=== PATIENT | male | born 1965 | race African-American/Black ===

== ENCOUNTER 2023-02-23 17:49 | Inpatient (IN) | payer MEDICARE ==
[~2023-02-23] VITALS: Ht 167.6 cm; Wt 87.8 kg
[~2023-02-23 17:49] MED LIST: DOXYCYCLINE 10100 MG PO
[2023-02-23] MEDS ORDERED: Albuterol/Ipratropium 3 MG-0.5 MG/3 ML Neb Soln IH ONE ×2 (18:00→18:30)
[2023-02-23] MEDS ORDERED: methylPREDNISolone Sod Succ 125 MG/2 ML VIAL IV ONE (18:00)
[2023-02-23] MEDS ORDERED: NS 1,000 ML IV ONE (18:15)
[2023-02-23 18:31] LABS: HEMATOCRIT 44.7 % (42.0-52.0); HEMOGLOBIN 14.9 g/dl (13.5-18.0); MEAN CELL VOLUME 82 fl (80.0-100.0); MEAN CORPUSCULAR HEMOGLOBIN 27 pg (27-31); MEAN CORPUSCULAR HGB CONC 33 g/dl (33.0-37.0); MEAN PLATELET VOLUME 9.6 fl (7.4-10.4); PLATELET COUNT 205 K/mm3 (130-400); RED BLOOD COUNT 5.47 M/mm3 (4.20-5.60); REDCELL DISTRIBUTION WIDTH-CV 13.3 % (11.5-14.5)
[2023-02-23 18:53] LABS: ALANINE AMINOTRANSFERASE 11 U/L (0-55); ALBUMIN 3.6 gm/dL (3.5-5.0); ALKALINE PHOSPHATASE 77 U/L (40-150); ANION GAP 10 mmol/L (7-16); AST,SGOT 21 U/L (5-34); BILIRUBIN,TOTAL 0.3 mg/dL (0.2-1.2); BLOOD UREA NITROGEN 10 mg/dL (8-26); C-REACTIVE PROTEIN 9.51 mg/dL (0.00-0.50); CALCIUM 8.9 mg/dL (8.4-10.2); CARBON DIOXIDE 19 mmol/L (22-29); CHLORIDE 98 mmol/L (98-107); CREATININE, serum 0.85 mg/dL (0.72-1.25); GLUCOSE 102 mg/dL (70-99); POTASSIUM 3.6 mmol/L (3.5-4.5); SODIUM 127 mmol/L (136-145); TOTAL PROTEIN 6.2 gm/dL (6.2-8.1)
[2023-02-23 18:58] LABS: TROPONIN-I < 0.010 ng/mL (0.00-0.033)
[2023-02-23 19:02] LABS: BAND 6 % (0-10); EOSINOPHIL 2 % (0-4); LYMPHOCYTE 6 % (20.0-51.0); MYELOCYTE 1 % (0-0); NEUTROPHILS 72 % (42.0-75.2); PLATELET ESTIMATE NORMAL (NORMAL)
[2023-02-23] MEDS ORDERED: Albuterol/Ipratropium 3 MG-0.5 MG/3 ML Neb Soln IH PRN ×2 (20:15→20:30)
[2023-02-23] MEDS ORDERED: cefTRIAXone 1 G in Water For Injection,Sterile 10 ML IV ONE (20:15)
--- NOTE | 2023-02-23 20:43 | NUR ---
PATIENT ARRIVED FROM ER VIA WHEELCHAIR. REPORT RECIEVED FROM [facility] NURSE PRACTITIONER AT 2128. PATIENT ASSISTED TO BED WITH STAND BY ASSIST. TELEMETRY INTACT. INT TO RIGHT FOREARM INTACT WITH ZOSYN INFUSING. PATIENT VERBALIZED UNDERSTANDING OF BED CONTROLS AND CALL LIGHT. BED IN LOW POSITION WITH WHEELS LOCKED WITH RAILS UP X3 AND CALL LIGHT WITHIN REACH. BED ALARM ON.
[2023-02-23] MEDS ORDERED: XALATAN EYE DROPS OU (21:21)
[2023-02-23] MEDS ORDERED: FOLIC ACID 11 MG/TA1 PO (21:22)
[2023-02-23] MEDS ORDERED: BUSPAR10 MG PO (21:22)
[2023-02-23] MEDS ORDERED: GLUCOPHAGE XR500 M1 PO (21:23)
[2023-02-23] MEDS ORDERED: LAMICTAL 100MG100 MG PO (21:24)
[2023-02-23] MEDS ORDERED: KLOR-CON 88 ME1 PO (21:24)
[2023-02-23] MEDS ORDERED: HALDOL 5MG T5 MG/TAB PO (21:24)
[2023-02-23] MEDS ORDERED: LEXAPRO 10MG10 MG PO (21:25)
[2023-02-23] MEDS ORDERED: NORVASC 10MG10 MG PO (21:26)
[2023-02-23] MEDS ORDERED: ZYPREXA10 MG PO (21:26)
[2023-02-23] MEDS ORDERED: PRINIVIL20 MG PO (21:27)
[2023-02-23] MEDS ORDERED: PROTONIX 40MG T40 MG PO (21:27)
[2023-02-23] MEDS ORDERED: TOPROL XL 50MG50 MG PO (21:28)
[2023-02-23 21:30] VITALS: BP_SYST 122
--- NOTE | 2023-02-23 21:30 | NUR ---
PATIENT RESTING IN BED WITH NO ACUTE DISTRESS NOTED. PATIENT ON 2 LITERS OF OXYGEN VIA NC. ZOSYN INFUSING INTO RIGHT FOREARM WITH NO COMPLICATIONS NOTED. ASSESSMENT COMPLETED AT THIS TIME. PATIENT TOLERATED WELL. PATIENT REQUESTED TURKEY SANDWICH AND DIET PEPSI. SANDWICH TRAY, CUP OF ICE, WATER PITCHER, AND DIET PEPSI GIVEN. PATIENT DENIES ANY OTHER NEEDS AT THIS TIME. PATIENT VERBALIZED UNDERSTANDING OF CALL LIGHT AND BED CONTROLS. BED IN LOW POSITION WITH WHEELS LOCKED WTIH RAILS UP X2 AND CALL LIGHT WITHIN REACH. BED ALARM ON.
[2023-02-23] MEDS ORDERED: INCRUSE EL62.5 MCG/A IH (21:31)
[2023-02-23] MEDS ORDERED: ULTRAM 50MG TAB50 MG PO (21:31)
--- NOTE | 2023-02-23 21:37 | NUR ---
[employer] CALLED TO CLARIFY METOPROLOL MEDICATION TYPE. NURSE COULD NOT STATE WHICH ONE BEWTEEN TATRATE AND SUCEINATE. KEITH GEE NOTIFIED PER HER REQUEST.
[2023-02-23] MEDS ORDERED: 00186-0372-20 IH (21:38)
[2023-02-23] MEDS ORDERED: ZYPREXA7.5 MG PO (21:39)
[2023-02-23] MEDS ORDERED: OTEZLA PO (21:39)
[2023-02-23] MEDS ORDERED: PROAIR HFA0.09 MG/AC IH (21:39)
[2023-02-23] MEDS ORDERED: PROCTOCREAM-HC2.5% RC (21:40)
[2023-02-23] MEDS ORDERED: AQUAPHOR HEALING41% TP (21:41)
[2023-02-23] MEDS ORDERED: ARTIFICIAL TEAR15 M7 OU (21:41)
[2023-02-23] MEDS ORDERED: ORAJEL MM (21:42)
[2023-02-23] MEDS ORDERED: BEANO400 UNIT PO (21:42)
[2023-02-23] MEDS ORDERED: B COMPLEX #11 TA1 PO (21:42)
[2023-02-23] MEDS ORDERED: BIOFREEZE 0.2%-1 GE1 TOP (21:43)
[2023-02-23] MEDS ORDERED: COLACE 100100 MG/CAP PO (21:43)
[2023-02-23] MEDS ORDERED: BIOTENE MOIST44.3 ML PO (21:43)
[2023-02-23] MEDS ORDERED: HALLS9.1 MG PO (21:44)
[2023-02-23] MEDS ORDERED: PEPCID AC 10MG10 MG PO (21:44)
[2023-02-23] MEDS ORDERED: EXPECTORANT DM240 ML PO (21:48)
[2023-02-23] MEDS ORDERED: ROBITUSSIN100 MG/5 M PO (21:49)
[2023-02-23] MEDS ORDERED: HYDROCORTISONE30 G3 TP (21:52)
[2023-02-23] MEDS ORDERED: ADVIL200 MG PO (21:52)
[2023-02-23] MEDS ORDERED: IMODIUM 2MG CAPS2 MG PO (21:52)
[2023-02-23] MEDS ORDERED: CLARITIN 1010 MG/TAB PO (21:53)
[2023-02-23] MEDS ORDERED: MELATONIN5 M1 PO (21:53)
[2023-02-23] MEDS ORDERED: MILK OF MA400 MG/52 PO (21:54)
[2023-02-23] MEDS ORDERED: MULTIPLE VITAMI1 CAP PO (21:55)
[2023-02-23] MEDS ORDERED: MUCINEX DM 30 M1 TE1 (21:55)
[2023-02-23] MEDS ORDERED: MAG-AL LIQUID 230 ML PO (21:55)
[2023-02-23] MEDS ORDERED: OCEAN NASAL SPR45 ML NS (21:57)
[2023-02-23] MEDS ORDERED: MIRALAX PA17 GM/Dose PO (21:57)
[2023-02-23] MEDS ORDERED: PREPH RC (21:58)
[2023-02-23] MEDS ORDERED: MYLICON 8080 MG/TAB. PO (21:58)
[2023-02-23] MEDS ORDERED: DEPO-TESTOS200 MG/M1 IM (21:59)
[2023-02-23] MEDS ORDERED: NATURE'S BLEND100 M2 PO (21:59)
[2023-02-23] MEDS ORDERED: VITAMIN D31000 I1 PO (22:00)
[2023-02-23] MEDS ORDERED: TYLENOL 325MG325 MG PO (22:00)
[2023-02-23] MEDS ORDERED: lamoTRIgine 100 MG TAB PO SCH (22:03)
[2023-02-23] MEDS ORDERED: OLANZapine 10 MG Orally-Disinteg TAB PO SCH (22:04)
[2023-02-23] MEDS ORDERED: busPIRone 5 MG TAB PO SCH (22:04)
[2023-02-23] MEDS ORDERED: Latanoprost 0.005% Ophth Soln 2.5 ML BOTTLE OP SCH (22:07)
[2023-02-23] MEDS ORDERED: guaiFENesin ER 1,200 MG **** subs to guaiFENesin 400 MG PO SCH (22:07)
[2023-02-23] MEDS ORDERED: Famotidine 20 MG TAB PO SCH (22:13)
[2023-02-23] MEDS ORDERED: Polyethylene Glycol 3350 17 GM PDS PO PRN (22:15)
[2023-02-23] MEDS ORDERED: Acetaminophen 325 MG TAB PO PRN (22:15)
[2023-02-23] MEDS ORDERED: Hydrocortisone 2.5% Cream 28.35 GM TUBE TOP PRN (22:15)
[2023-02-23] MEDS ORDERED: Menthol Cough/Sore Throat LOZENGE MM PRN (22:15)
[2023-02-23] MEDS ORDERED: traMADol 50 MG TAB PO PRN (22:15)
[2023-02-23] MEDS ORDERED: Sodium Chloride 0.65% Nasal Irrig 45 ML BOTTLE NS PRN (22:15)
[2023-02-23] MEDS ORDERED: guaiFENesin Oral Soln 200 MG/10 ML UD PO PRN (22:15)
[2023-02-23] MEDS ORDERED: guaiFENesin/Dextromethorphan Oral Soln 200-20 MG/10 ML UD PO PRN (22:15)
[2023-02-23] MEDS ORDERED: NS 1,000 ML IV SCH (22:30)
[2023-02-23] MEDS ORDERED: Melatonin 3 MG TAB PO SCH (22:30)
[2023-02-23] MEDS ORDERED: Nicotine 14 MG DAILY PATCH TD SCH (22:45)
[2023-02-23] MEDS ORDERED: Potassium Bicarbonate/Citrate 20 MEQ Effervescent TAB PO SCH (22:45)
[2023-02-23] MEDS ORDERED: *Potassium Replacement Protocol MC SCH (22:45)
[2023-02-23 23:35] VITALS: BP 131/79; PULSE 116; TEMP 99
--- NOTE | 2023-02-23 23:46 | NUR ---
PATIENT RESTING IN BED WITH NO ACUTE DISTRESS NOTED. PATIENT ON 2 LITERS OF OXYGEN VIA NC. MEDICATION ADMINISTRATION COMPLETED AT THIS TIME. PATIENT TOLERATED WELL. PATIENT C/O PAIN AND TYLENOL WAS GIVEN. SEE EMAR. PATIENT REQUESTED DIET PEPSI AND WAS GIVEN. ALL NEEDS MET. BED IN LOW POSITION WITH WHEELS LOCKED WITH RAILS UP X3 AND CALL LIGHT WITHIN REACH. BED ALARM ON.
[2023-02-24] VITALS (12 sets, daily range): BP systolic 100–132; BP diastolic 58–87; PULSE 67–102; TEMP 97.6–98.3
[2023-02-24] MEDS ORDERED: Albuterol/Ipratropium 3 MG-0.5 MG/3 ML Neb Soln IH SCH ×2 (02:00)
[2023-02-24] MEDS ORDERED: Formoterol 20 MCG,Budesonide 0.5 MG IH SCH (07:00)
[2023-02-24] MEDS ORDERED: Multivitamin TAB PO SCH (09:00)
[2023-02-24] MEDS ORDERED: Loratadine 10 MG TAB PO SCH (09:00)
[2023-02-24] MEDS ORDERED: Carboxymethylcellulose PF Ophth 0.4 ML DROPPERETTE OP SCH (09:00)
[2023-02-24] MEDS ORDERED: Thiamine 100 MG TAB PO SCH (09:00)
[2023-02-24] MEDS ORDERED: Docusate Sodium 100 MG CAP PO SCH (09:00)
[2023-02-24] MEDS ORDERED: Cholecalciferol (Vit D3) 1000 Units TAB PO SCH (09:00)
[2023-02-24] MEDS ORDERED: Folic Acid 1 MG TAB PO SCH (09:00)
[2023-02-24] MEDS ORDERED: OLANZapine 5 MG TAB PO SCH (09:00)
[2023-02-24] MEDS ORDERED: PETROLATUM TP SCH (09:00)
[2023-02-24] MEDS ORDERED: dexAMETHasone 10 MG/ML VIAL IV SCH (09:00)
[2023-02-24 12:04] LABS: BASO % 0.1 % (0.0-2.0); GRAN # 5.8 K/mm3 (1.4-6.5); GRAN % 83.6 % (42.2-75.2); HEMATOCRIT 46.9 % (42.0-52.0); HEMOGLOBIN 15.5 g/dl (13.5-18.0); LYMPH # 0.5 K/mm3 (1.2-3.4); LYMPH % 6.5 % (20.0-51.0); MEAN CELL VOLUME 82 fl (80.0-100.0); MEAN CORPUSCULAR HEMOGLOBIN 27 pg (27-31); MEAN CORPUSCULAR HGB CONC 33 g/dl (33.0-37.0); MEAN PLATELET VOLUME 9.4 fl (7.4-10.4); MONO # 0.7 K/mm3 (0.1-0.6); MONO % 9.4 % (1.7-9.3); PLATELET COUNT 206 K/mm3 (130-400); RED BLOOD COUNT 5.74 M/mm3 (4.20-5.60); REDCELL DISTRIBUTION WIDTH-CV 13.5 % (11.5-14.5)
[2023-02-24 12:17] LABS: CALCIUM 8.7 mg/dL (8.4-10.2); CREATININE, serum 0.74 mg/dL (0.72-1.25); POTASSIUM 4.2 mmol/L (3.5-4.5)
--- NOTE | 2023-02-24 13:32 | NUR ---
Initial visit; Patient thanked Direct Selling Counselor for introducing herself and offering God's blessings. Patient from [place] so when Direct Selling Counselor learned this information she told patient we are glad to have him with us here in [place]. He took notice and thanked her for coming in.
--- NOTE | 2023-02-24 15:34 | NUR ---
[facility] [employer] met with patient to discuss discharge planning. Patient's guardian, Grisel (ph#[phone]) is at bedside. Patient lives at [facility] but stated he doesn't really like it. Patient sees Dr. Lee for primary care. Grisel advised plan is for patient to return to [place] at time of discharge. Guardianship documents are on patient's chart. BRENDAN Cruz contacted [facility] and faxed clinical updates. Discharge Plan: [facility]
[2023-02-24] MEDS ORDERED: busPIRone 7.5 MG TABLET PO SCH (21:00)
[2023-02-24] MEDS ORDERED: amLODIPine 10 MG TAB PO SCH (21:00)
--- NOTE | 2023-02-24 22:34 | NUR ---
Patient assessed around 1950. Alert and oriented, and able to make needs known. Denies having pain and discomfort. Peripheral INT to right forearm, has ABX running per orders. Denies SOB at rest, but states he does with exertion. LS wheezes. RT placed patient on room air. HRR. Telemetry in place. BSAx4. No edema. Voices no questions, needs, or concerns at this time. In bed with call light within reach. High fall risk precautions in place. Bed alarm on.
[2023-02-25] VITALS (11 sets, daily range): BP systolic 103–117; BP diastolic 67–74; PULSE 84–95; TEMP 97.4–979
--- NOTE | 2023-02-25 06:16 | NUR ---
Patient remains on room air. Continues on IV ABX per orders. Received PRN Ultram once this shift as requested for pain. Voices no questions, needs, or concerns at this time. In bed with call light within reach. High fall risk precautions in place. Bed alarm on.
[2023-02-25 07:39] LABS: BASO % 0.1 % (0.0-2.0); EOS % 0.1 % (0.0-4.0); GRAN # 6.7 K/mm3 (1.4-6.5); GRAN % 70.6 % (42.2-75.2); HEMATOCRIT 47.9 % (42.0-52.0); HEMOGLOBIN 15.6 g/dl (13.5-18.0); LYMPH # 1.3 K/mm3 (1.2-3.4); LYMPH % 13.3 % (20.0-51.0); MEAN CELL VOLUME 82 fl (80.0-100.0); MEAN CORPUSCULAR HEMOGLOBIN 27 pg (27-31); MEAN CORPUSCULAR HGB CONC 33 g/dl (33.0-37.0); MEAN PLATELET VOLUME 9.6 fl (7.4-10.4); MONO # 1.5 K/mm3 (0.1-0.6); MONO % 15.6 % (1.7-9.3); PLATELET COUNT 226 K/mm3 (130-400); RED BLOOD COUNT 5.82 M/mm3 (4.20-5.60); REDCELL DISTRIBUTION WIDTH-CV 13.7 % (11.5-14.5)
[2023-02-25 08:00] LABS: ALBUMIN 3.2 gm/dL (3.5-5.0); BILIRUBIN,TOTAL 0.1 mg/dL (0.2-1.2); CALCIUM 8.6 mg/dL (8.4-10.2); CREATININE, serum 0.78 mg/dL (0.72-1.25); MAGNESIUM 2.2 mg/dL (1.6-2.6); POTASSIUM 3.6 mmol/L (3.5-4.5); TOTAL PROTEIN 5.9 gm/dL (6.2-8.1)
[2023-02-25] MEDS ORDERED: Haloperidol 5 MG TAB PO SCH (11:00)
[2023-02-25] MEDS ORDERED: OLANZapine 5 MG TAB PO SCH ×2 (11:00→21:00)
--- NOTE | 2023-02-25 15:21 | NUR ---
SW Student faxed clinical updates to [facility] (fax# [phone]).
--- NOTE | 2023-02-25 22:27 | NUR ---
Patient assessed around 194. Denies having pain and discomfort at this time. Peripheral INT to right forearm. Continues on IV ABX per orders. Reports SOB with exertion, denies at rest. LS expiratory wheezes. Has productive cough. Sputum sample obtained and sent to lab. On oxygen at 1 L/min via NC. HRR. Telemetry in place. BSAx4. No edema. Voices no questions, needs, or concerns at this time. In bed with call light within reach. High fall risk precautions in place. Bed alarm on.
[2023-02-26] VITALS (12 sets, daily range): BP systolic 110–147; BP diastolic 58–84; PULSE 72–102; TEMP 97.5–98.4
--- NOTE | 2023-02-26 05:57 | NUR ---
Patient remains on oyxgen at 1 L/min via NC. Denies having pain and discomfort. Voices no questions, needs, or concerns at this time. In bed with call light within reach. High fall risk precautions in place. Bed alarm on.
[2023-02-26 06:57] LABS: BASO % 0.2 % (0.0-2.0); EOS % 0.2 % (0.0-4.0); GRAN % 62.3 % (42.2-75.2); HEMATOCRIT 49.6 % (42.0-52.0); HEMOGLOBIN 16.2 g/dl (13.5-18.0); LYMPH # 1.4 K/mm3 (1.2-3.4); LYMPH % 21.8 % (20.0-51.0); MEAN CELL VOLUME 82 fl (80.0-100.0); MEAN CORPUSCULAR HEMOGLOBIN 27 pg (27-31); MEAN CORPUSCULAR HGB CONC 33 g/dl (33.0-37.0); MEAN PLATELET VOLUME 9.6 fl (7.4-10.4); PLATELET COUNT 241 K/mm3 (130-400); RED BLOOD COUNT 6.04 M/mm3 (4.20-5.60); REDCELL DISTRIBUTION WIDTH-CV 13.7 % (11.5-14.5)
[2023-02-26 07:18] LABS: CALCIUM 8.4 mg/dL (8.4-10.2); CREATININE, serum 0.79 mg/dL (0.72-1.25); POTASSIUM 3.8 mmol/L (3.5-4.5)
[2023-02-26] MEDS ORDERED: Potassium Bicarbonate/Citrate 20 MEQ Effervescent TAB PO ONE (10:00)
--- NOTE | 2023-02-26 16:54 | NUR ---
BRENDAN contacted [facility]. BRENDAN notified them that patient is not ready for discharge but his doctor expressed potentially tomorrow. [facility] is able to accept tomorrow but would request SW contact transportation if he is ready for discharge. Tiny with transportation P# [phone]. [facility] would like patient to return skilled with PT/OT and nursing. BRENDAN faxed clinical updates to [facility]. Discharge plan: [facility] - SNF
[2023-02-27] VITALS (12 sets, daily range): BP systolic 110–133; BP diastolic 65–90; PULSE 65–87; TEMP 97.5–98.3
--- NOTE | 2023-02-27 07:19 | NUR ---
Pt A&Ox4. Uneventful night. All medications were administered per emar. Pt reported pain on his R shoulder scored at 8/10 for which he requested his PRN tramadol. RFA INT has no edema or redness on assessment. Pt on 1L of O2 per NC. Assisted to the bathroom several times. One episode of large and soft BM. Belongings and call light are within reach.
--- NOTE | 2023-02-27 07:53 | NUR ---
Bedside report recieved from YRN Christie. Pt is currently awake in bed with RT at bedside doing treatment. Pt has no complaints at this time. Call light within reach.
[2023-02-27 08:55] LABS: EOS % 0.2 % (0.0-4.0); GRAN # 3.3 K/mm3 (1.4-6.5); GRAN % 52.4 % (42.2-75.2); HEMATOCRIT 47.8 % (42.0-52.0); LYMPH # 1.9 K/mm3 (1.2-3.4); LYMPH % 29.4 % (20.0-51.0); MEAN CELL VOLUME 81 fl (80.0-100.0); MEAN CORPUSCULAR HEMOGLOBIN 27 pg (27-31); MEAN CORPUSCULAR HGB CONC 34 g/dl (33.0-37.0); MEAN PLATELET VOLUME 9.1 fl (7.4-10.4); MONO # 1.1 K/mm3 (0.1-0.6); MONO % 17.5 % (1.7-9.3); PLATELET COUNT 223 K/mm3 (130-400); REDCELL DISTRIBUTION WIDTH-CV 13.5 % (11.5-14.5)
[2023-02-27 09:11] LABS: CALCIUM 8.6 mg/dL (8.4-10.2); CREATININE, serum 0.74 mg/dL (0.72-1.25); POTASSIUM 3.3 mmol/L (3.5-4.5)
[2023-02-27] MEDS ORDERED: Potassium Bicarbonate/Citrate 20 MEQ Effervescent TAB PO SCH (09:45)
--- NOTE | 2023-02-27 18:47 | NUR ---
Bedside report given to YRN Gandhi. Pt is awake in bed at this time with no complaints. Zosyn infusing at 25 mL into Rt forearm with no complications. Call light within reach and fall precautions in place.
--- NOTE | 2023-02-27 21:59 | NUR ---
Patient assessed at approximately 2029. Alert and oriented, and able to make needs known. Reported level 6 pain to right shoulder, and given PRN Ultram as requested. Peripheral INT to right forearm with IV ABX running per orders. Reports SOB with exertion, denies at rest. On oxygen at 1 L/min via NC. LS expiratory wheezes. HRR. Telemetry in place. BSAx4. No edema. Voices no questions, needs, or concerns at this time. In bed with call light within reach. High fall risk precautions in place. Bed alarm on.
[2023-02-28] VITALS (11 sets, daily range): BP systolic 112–139; BP diastolic 72–87; PULSE 68–89; TEMP 97.4–98.1
--- NOTE | 2023-02-28 06:44 | NUR ---
Continues on oxygen at 1 L/mi via NC. Denies having pain and discomfort. Received IV ABX per orders. Voices no questions, needs, or concerns at this time. In bed with call light within reach. High fall risk precautions in place. Bed alarm on.
--- NOTE | 2023-02-28 07:01 | NUR ---
Bedside report recieved from YRN Gandhi. Call light within reach and fall precautions in place.
[2023-02-28 07:10] LABS: HEMATOCRIT 48.6 % (42.0-52.0); HEMOGLOBIN 15.6 g/dl (13.5-18.0); MEAN CELL VOLUME 83 fl (80.0-100.0); MEAN CORPUSCULAR HEMOGLOBIN 27 pg (27-31); MEAN CORPUSCULAR HGB CONC 32 g/dl (33.0-37.0); MEAN PLATELET VOLUME 9.4 fl (7.4-10.4); PLATELET COUNT 234 K/mm3 (130-400); RED BLOOD COUNT 5.87 M/mm3 (4.20-5.60); REDCELL DISTRIBUTION WIDTH-CV 13.3 % (11.5-14.5)
[2023-02-28 07:30] LABS: CALCIUM 8.7 mg/dL (8.4-10.2); CREATININE, serum 0.75 mg/dL (0.72-1.25); POTASSIUM 3.8 mmol/L (3.5-4.5)
[2023-02-28 07:38] LABS: HYPOCHROMIA 1+; LYMPHOCYTE 25 % (20.0-51.0); NEUTROPHILS 59 % (42.0-75.2); PLATELET ESTIMATE NORMAL (NORMAL)
[2023-02-28] MEDS ORDERED: Potassium Bicarbonate/Citrate 20 MEQ Effervescent TAB PO ONE (07:45)
--- NOTE | 2023-02-28 08:58 | NUR ---
Shift assessment completed. VSS. Pt is awake in bed with no complaints. Pt reports no pain at this time. Telemetry in place. INT to Rt forearm is patent with no redness, swelling, or drainage. Call light within reach and fall precautions in place.
--- NOTE | 2023-02-28 18:53 | NUR ---
Bedside report given to YRN Gandhi. Call light within reach.
--- NOTE | 2023-02-28 21:20 | NUR ---
Patient assessed around 1939. Alert and oriented, and able to make needs known. Reports generalized pain, all over, rated as a 6. Given PRN Tramadol as requested. Peripheral IV to right forearm. Continues on IV ABX per orders. Continues to have SOB with exertion. Expiratory wheezes. Patient on oxygen at 2 L/min via NC during assessment. HRR. Telemetry in place. BSAx4. No edema. Voices no questions, needs, or concerns at this time. In bed with call light within reach. High fall risk precautions in place. Bed alarm on.
[2023-03-01] VITALS (7 sets, daily range): BP systolic 112–134; BP diastolic 72–86; PULSE 64–87; TEMP 97.6–98
--- NOTE | 2023-03-01 06:41 | NUR ---
Patient put back on room air around 0300. Denies having pain and discomfort. Received IV ABX per orders. Voices no questions, needs, or concerns at this time. In bed with call light within reach. High fall risk precautions in place. Bed alarm on.
[2023-03-01 08:07] LABS: HEMATOCRIT 49.8 % (42.0-52.0); HEMOGLOBIN 16.2 g/dl (13.5-18.0); MEAN CELL VOLUME 82 fl (80.0-100.0); MEAN CORPUSCULAR HEMOGLOBIN 27 pg (27-31); MEAN CORPUSCULAR HGB CONC 33 g/dl (33.0-37.0); PLATELET COUNT 265 K/mm3 (130-400); RED BLOOD COUNT 6.08 M/mm3 (4.20-5.60); REDCELL DISTRIBUTION WIDTH-CV 13.3 % (11.5-14.5)
--- NOTE | 2023-03-01 08:16 | NUR ---
PATIENT ON RA, SPO2 89%, WILL PLACE BACK ON O2 AT 2LPM.
[2023-03-01 08:23] LABS: CALCIUM 8.8 mg/dL (8.4-10.2); CREATININE, serum 0.82 mg/dL (0.72-1.25); POTASSIUM 3.7 mmol/L (3.5-4.5)
[2023-03-01 08:42] LABS: EOSINOPHIL 1 % (0-4); LYMPHOCYTE 45 % (20.0-51.0); NEUTROPHILS 51 % (42.0-75.2); PLATELET ESTIMATE NORMAL (NORMAL)
[2023-03-01] MEDS ORDERED: *Potassium Replacement Protocol MC SCH (09:00)
[2023-03-01] MEDS ORDERED: Potassium Bicarbonate/Citrate 20 MEQ Effervescent TAB PO SCH (09:00)
--- NOTE | 2023-03-01 09:48 | NUR ---
PATIENT EATING BREAKFAST. ALERT AND ORIENTED. SHIFT ASSESSMENT COMPLETE. TELE ON. PATIENT DENIES PAIN OR DISCOMFORT AT THIS TIME.
--- NOTE | 2023-03-01 14:29 | NUR ---
PATENT REFUSES EXERCISE OX, ONLY WANTS BREATHING TX, SPO2 ON RA 90%, BS DIMINISHED
[2023-03-01] MEDS ORDERED: AMOXICILLIN 8751 TAB PO (14:54)
[2023-03-01] MEDS ORDERED: IPRATROPIUM BROM3 M1 IH ×2 (14:55)
[2023-03-01] MEDS ORDERED: DECADRON 4MG TAB4 MG PO (15:00)
--- NOTE | 2023-03-01 15:15 | NUR ---
exercise oximeter walk today. patient >90% during entire walk withoyt 02, does not qualify for home 02.
--- NOTE | 2023-03-01 16:06 | NUR ---
molding utility worker was informed patient is from [facility] and can return today. BRENDAN spoke with Nancy at [facility] and they can transport at 4pm. She asked to have medications called into [facility] pharmacy. She requests orders to say PT/OT/skilled. BRENDAN informed Dr. Fofana of this. Dr. Fofana ordred ex oximetry. Pt does not qualify for oxygen. BRENDAN faxed updates and discharge orders to [facility]. Discharge Plan: 4pm [facility]
--- NOTE | 2023-03-01 17:07 | NUR ---
PATIENT ESCORTED OFF UNIT AT 1445. ALL BELONGINGS WITH PATIENT. REPORT CALLED TO [facility] NURSE.
== END 2023-03-01 16:45 | DRG 871 ==
LOC: COL.ER 17:49 → MEDICAL 20:18
PROVIDERS: Hospitalist; Nurse Practitioner; Physician Assistant; ADMIT Internal Medicine
DX: A41.9 Sepsis, unspecified organism (principal); J18.9 Pneumonia, unspecified organism; J96.01 Acute respiratory failure with hypoxia; J44.1 Chronic obstructive pulmonary disease with (acute) exacerbation; F20.0 Paranoid schizophrenia; E87.1 Hypo-osmolality and hyponatremia; F17.200 Nicotine dependence, unspecified, uncomplicated; I10 Essential (primary) hypertension; F41.9 Anxiety disorder, unspecified; F32.A Depression, unspecified; E87.6 Hypokalemia; K21.9 Gastro-esophageal reflux disease without esophagitis; L40.9 Psoriasis, unspecified
CPT/HCPCS: J0696; J1100; J1650; J2543; J2930; J7030